=== PATIENT | male | born 1985 | race African-American/Black ===

== ENCOUNTER 2021-11-23 12:42 | Emergency (ER) | payer SELFPAY ==
[~2021-11-23] VITALS: Ht 175.3 cm; Wt 97.0 kg
[2021-11-23 12:57] VITALS: BP 142/93
[2021-11-23] MEDS ORDERED: LIDOCAINE HCL 1% 20ML VIAL (Pyxis) INJ INFIL ONE (15:30)
[2021-11-23] MEDS ORDERED: CEFTRIAXONE SODIUM 500 MG/VIAL IM ONE (15:30)
[2021-11-23] MEDS ORDERED: DOXY100C5 MT (15:31)
== END 2021-11-23 16:21 | disposition home or self-care (01) ==
LOC: ER 12:42
DX: A54.9 Gonococcal infection, unspecified (principal)
CPT/HCPCS: 99283